=== PATIENT | male | born 1955 | race African-American/Black ===

== ENCOUNTER 2017-02-11 09:37 | Emergency (ER) | payer MEDICARE, MEDICAID ==
[~2017-02-11] VITALS: Ht 170.2 cm; Wt 55.8 kg
[~2017-02-11 09:37] MED LIST: ASPIR-LOW81 MG PO; CEFTIN500 MG ORAL; NORVIR100 MG PO; PREDNISONE20 MG ORAL; PREZISTA600 MG PO; PROAIR HFA8.5 GM INH; SEROSTIM4 MG SQ; SPIRIVA18 MCG INH; SYMBICORT 16010.2 G1 IH; TRUVADA1 TAB PO; VALACYCLOVIR500 MG PO; VITAMIN B-12100 MCG PO; VITAMIN D1000 UNI1 PO
[2017-02-11 09:50] VITALS: BP 122/82
[2017-02-11] MEDS ORDERED: Ketorolac 30mg Inj IV ONE (10:15)
--- NOTE | 2017-02-11 10:20 | Emergency Room Report ---
History of Present Illness General Chief Complaint: Abdominal Pain Source: Patient, Medical Record Present Illness HPI 61 yo M hx of HIV on [place] (undetectable viral load ~2 mos ago, unknown CD4 ct ) pw RLQ abd pain since last night 9pm. started suddenly, sharp, constant, non radiating. never had this pain before. first occurrence. took "pain pill" last night without relief. no n/v. +1 episode watery nb diarrhea this am. no fever chills black/bloody stools dysuria/hematuria. no abd surgeries. Allergies: Coded Allergies: PENICILLINS (Verified Allergy, Unknown, 12/17/08) SULFAMETHOXAZOLE (Verified Allergy, Unknown, 12/17/08) TAMSULOSIN (Verified Allergy, Unknown, 12/17/08) TESTOSTERONE (Verified Allergy, Unknown, 12/17/08) TRIMETHOPRIM (Verified Allergy, Unknown, 12/17/08) Uncoded Allergies: MILK (Allergy, Mild, 02/14/07) Patient History Past Medical History: HIV Past Surgical History: none Pertinent Family History: none Social History: Reports: smoking Immunizations: UTD Reviewed Nursing Documentation: PMH: Agreed, PSxH: Agreed Nursing Documentation-PMH Hx Cardiac Problems: Yes - palpitations Hx COPD: Yes Hx Cancer: No Hx Gastrointestinal Problems: Yes Hx Neurological Problems: Yes Hx Tremors: Yes - Intermittent tremors, not as bad as it used to be. Hx Headaches: Yes Review of Systems All Other Systems: negative except mentioned in HPI Physical Exam Vital Signs Date Time Temp Pulse Resp B/P Pulse Ox O2 Delivery O2 Flow Rate FiO2 02/11/17 09:39 97.5 93 24 131/82 97 Room Air Sp02 EP Interpretation: reviewed, normal General Appearance: normal inspection, well appearing, alert, mild distress Head: atraumatic Eyes: bilateral eye normal inspection ENT: normal ENT inspection, hearing grossly normal, normal voice Neck: normal inspection, full range of motion, supple Respiratory: normal inspection, lungs clear, normal breath sounds, no respiratory distress, no retraction, no wheezing Cardiovascular #1: regular rate, rhythm, no edema Gastrointestinal: normal inspection, normal bowel sounds, soft, no hernia, other - RLQ tenderness with voluntary guarding. no rebound tenderness. Genitourinary: no CVA tenderness Musculoskeletal: normal inspection, back normal, normal range of motion, Magno' s Sign negative Neurologic: normal inspection, alert, responsive, speech normal Psychiatric: normal inspection, judgement/insight normal, mood/affect normal Skin: normal inspection, normal color, no rash Medical Decision Making Diagnostic Impression: Primary Impression: Abdominal pain Qualified Codes: R10.31 - Right lower quadrant pain Additional Impressions: Cystitis Prostatitis Qualified Codes: N41.0 - Acute prostatitis ER Course RLQ pain for 1 day - VSS. Afebrile - No peritonitis - Labs: Mild hyper K 5.2 tx with 1 neb in ED. No kidney injury. - CTAP: No appy. ?cystitis Patient endorses recent prostrate instrumentation by PMD Was not DCed with Abx Rx Cipro for 1 week for ?prostatitis EKG Diagnostic Results Rate: normal Rhythm: NSR ST Segments: no acute changes ASA given to the pt in ED: No Rhythm Strip Diag. Results EP Interpretation: yes Rate: 64. Rhythm: NSR, no PVC's, no ectopy Last Vital Signs Date Time Temp Pulse Resp B/P Pulse Ox O2 Delivery O2 Flow Rate FiO2 02/11/17 09:39 97.5 93 24 131/82 97 Room Air Status: improved Disposition: HOME, SELF-CARE Scripts Ciprofloxacin Hcl* (CIPROFLOXACIN HCL*) 500 Mg Tablet 500 MG ORAL Q12H for 7 Days, #14 TAB 0 Refills Prov: BRANDI LINCOLN M.D. 02/11/17 Referrals: NON PHYSICIAN (PCP) BRANDI LINCOLN M.D. Feb 11, 2017 10:20
[2017-02-11 10:48] LABS: EOSINOPHILS % (AUTO) 1.8 % (0.0-3.0); LYMPHOCYTES % (AUTO) 41.7 % (20.0-45.0); MEAN CORPUSCULAR HEMOGLOBIN 31.4 PG (27.0-31.0); MEAN CORPUSCULAR HGB CONC 32.1 G/DL (32.0-36.0); MEAN CORPUSCULAR VOLUME 98 FL (80-99); MEAN PLATELET VOLUME 7.1 FL (6.5-10.1); NEUTROPHILS % (AUTO) 48.6 % (45.0-75.0); PLATELET COUNT 216 K/UL (150-450); RED BLOOD COUNT 4.33 M/UL (4.70-6.10); RED CELL DISTRIBUTION WIDTH 13.4 % (11.6-14.8); WHITE BLOOD COUNT 6.2 K/UL (4.8-10.8)
[2017-02-11 10:54] LABS: APPEARANCE,URINE CLEAR; KETONES,URINE NEGATIVE (NEGATIVE); LEUKOCYTE ESTERASE ,URINE NEGATIVE (NEGATIVE); NITRITE,URINE NEGATIVE (NEGATIVE); PH,URINE 7 (4.5-8.0); PROTEIN,URINE NEGATIVE (NEGATIVE); UROBILINOGEN,URINE NORMAL MG/DL (0.0-1.0)
[2017-02-11 11:04] LABS: ALANINE AMINOTRANSFERASE 10 U/L (3-41); ALBUMIN/GLOBULIN RATIO 1.1 (1.0-2.7); ANION GAP 12 (5-15); ASPARTATE AMINO TRANSFERASE 18 U/L (5-40); CALCIUM 9.8 mg/dL (8.6-10.2); CARBON DIOXIDE 25 mEQ/L (20-30); CHLORIDE 101 mEQ/L (98-107); CREATININE 0.9 mg/dL (0.7-1.2); GLOMERULAR FILTRATION RATE > 60 mL/min (>60); HEMOLYSIS 49; LIPASE 14 U/L (< 60); POTASSIUM 5.2 mEQ/L (3.4-4.9); SODIUM 138 mEQ/L (135-145); TOTAL PROTEIN 7.3 g/dL (6.6-8.7)
[2017-02-11] MEDS ORDERED: CIPROFLOXACIN500 M2 ORAL ×2 (13:48→13:54)
[2017-02-11] MEDS ORDERED: TRAMADOL HCL50 MG ORAL (14:26)
[2017-02-11 14:32] VITALS: BP 145/83
--- NOTE | 2017-02-12 08:27 | Diagnostic Imaging Report ---
Clinical Indication: PAIN Technique: No oral contrast utilized, per emergency room physician request IV administration nonionic contrast. Venous phase spiral acquisition obtained through the abdomen and pelvis. Multiplanar reconstructions were generated. Total dose length product 605 mGycm. CTDIvol(s) 12 mGy. Dose reduction achieved using automated exposure control Comparison: 02/13/15 CT abdomen, 08/20/2009 CT abdomen pelvis Findings: The appendix is normal. No evidence of diverticulosis or diverticulitis. No small bowel distention. Ingested contrast is seen all the way through the small bowel and into the cecum and ascending colon. No free or loculated intraperitoneal air or fluid. Distal esophagus, stomach, duodenum are unremarkable. The liver, gallbladder, bile ducts, pancreas, spleen,, kidneys are unremarkable. There is considerable aortic mural thickening with hard and soft plaque, and saccular ectasia of the infrarenal abdominal aorta, which is not quite aneurysmal. The bladder is unremarkable. The prostate is enlarged. There is some edema of the right upper quadrant mesenteric root, pericaval and periaortic fat. This is particularly noticeable in the retrocrural regions. The included lung bases demonstrate evidence of hyperinflation, fibrotic change, and slight bronchiectasis. The bones are unremarkable. Compared to the previous exam, aortic ectasia has increased by a few millimeters. Impression: Nonspecific mild edema of the right upper quadrant mesenteric root, para-aortic and pericaval fat. 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 The CT scanner at [facility] is accredited by the [employer] and the scans are performed using protocols designed to limit radiation exposure to as low as reasonably achievable to attain images of sufficient resolution adequate for diagnostic evaluation.
--- NOTE | 2017-02-14 07:56 | Cardiology Report ---
APPROVED REPORT EKG Measurement Heart [id number] Normal sinus rhythm Normal ECG
== END 2017-02-11 14:33 | disposition home or self-care (01) ==
LOC: EMR 10:09
DX: R10.31 Right lower quadrant pain (principal); N41.0 Acute prostatitis; N30.90 Cystitis, unspecified without hematuria; J44.9 Chronic obstructive pulmonary disease, unspecified; F17.200 Nicotine dependence, unspecified, uncomplicated; Z88.0 Allergy status to penicillin; Z88.2 Allergy status to sulfonamides; Z88.1 Allergy status to other antibiotic agents; Z88.8 Allergy status to other drugs, medicaments and biological substances
CPT/HCPCS: 36415; 74177; 80053; 81003; 83690; 85025; 93005; 96374; 99284; J1885; Q9967

== ENCOUNTER 2017-06-08 11:54 | Outpatient (CLI) | payer MEDICARE, MEDICAID ==
[~2017-06-08 11:54] MED LIST changes: +CIPROFLOXACIN500 M2 ORAL; +TRAMADOL HCL50 MG ORAL
--- NOTE | 2017-06-14 23:12 | Diagnostic Imaging Report ---
APPROVED REPORT CPT Code: 43712 Symptoms RIGHT LEG: Common femoral artery waveform analysis is within normal limits at rest. Color flow duplex sonography reveals calcification throughout the superficial femoral artery. A moderate (50-75%) stenosis is seen in the distal superficial femoral artery. There is no evidence of occlusion within this segment. The tibioperoneal trunk is patent. The anterior, peroneal, distal posterior and dorsalis pedis arteries are also mildly calcified. The Doppler tibial artery waveform analysis is compatible with minimal ischemia at rest. LEFT LEG: Common femoral artery waveform analysis is within normal limits at rest. Color flow duplex sonography reveals calcification throughout the superficial femoral artery. A moderate (30-50%) stenosis is seen in the mid superficial femoral artery. There is no evidence of occlusion within this segment. The tibioperoneal trunk is patent. The anterior, peroneal, distal posterior and dorsalis pedis arteries are also mildly calcified. The Doppler tibial artery waveform analysis is compatible with minimal ischemia at rest. Bilateral Ankle Brachial Index was performed but unobtainable due to calcified vessels.
== END 2017-06-08 13:54 | disposition home or self-care (01) ==
LOC: VAS 11:54
DX: M79.605 Pain in left leg (principal); M79.604 Pain in right leg
CPT/HCPCS: 93925

== ENCOUNTER 2018-09-18 09:46 | Outpatient (CLI) | payer MEDICARE, MEDICAID ==
--- NOTE | 2018-09-18 12:30 | Diagnostic Imaging Report ---
Indication: COPD. Chest pain Technique: Continuous helical transaxial imaging of the chest was obtained from the thoracic inlet to the upper abdomen. No intravenous contrast was administered. Coronal 2-D reformats were also obtained. Total Dose length Product (DLP): 471.[address] Dose Index Volume (CTDIvol): 12.2 mGy Comparison: none Findings: Patchy areas of a hyperlucency demonstrated throughout the lung godinez particularly in the upper lobes consistent with emphysema. This is accompanied by a generalized hyperinflation and presence of a paraseptal blebs at the periphery of the lungs in both the lung bases as well as the lung apices. This is also accompanied by thickening of septa mainly at the peripheral intralobular level. No nodule or mass identified. No pleural effusion identified. There is no adenopathy seen. The heart is unremarkable. Arterial calcifications involving the aorta and coronary arteries are noted. The axilla appear clear. The visualized part of the upper abdomen is unremarkable. IMPRESSION: COPD/emphysema. Mild scattered fibrosis as well especially at the periphery of the lungs. Atherosclerotic vascular disease. No mass identified The CT scanner at [facility] is accredited by the [employer] and the scans are performed using dose optimization techniques as appropriate to a performed exam including Automatic Exposure control.
== END 2018-09-18 11:46 | disposition home or self-care (01) ==
LOC: CAT 09:46
DX: R91.1 Solitary pulmonary nodule (principal); R07.9 Chest pain, unspecified; J43.9 Emphysema, unspecified; I25.10 Atherosclerotic heart disease of native coronary artery without angina pectoris; J84.10 Pulmonary fibrosis, unspecified
CPT/HCPCS: 71250